=== PATIENT | female | born 1960 | race African-American/Black ===

== ENCOUNTER 2017-09-03 23:16 | Emergency (ER) | payer MEDICARE, MEDICAID ==
[2017-09-03] MEDS ORDERED: Milk Of Magnesia 30 ML UDCUP ONE (23:41)
[2017-09-03] MEDS ORDERED: Lidocaine Viscous Sol 2% 15 ml UD Cup ONE (23:41)
[2017-09-04] LABS: Hematocrit 40.3 % (36.0-47.0); Mean Platelet Volume 7.7 fL (7.4-10.4); Red Blood Cell (RBC) Count 4.45 mill/uL (4.20-5.40); White Blood Cell (WBC) Count 8.1 thou/uL (4.8-10.8)
[2017-09-04 00:13] LABS: Bilirubin Negative (Negative); Blood, Urine Negative (Negative); Glucose, Urine (Dipstick) Negative (Negative); Ketone, Urine Negative (Negative); Nitrite Negative (Negative); Protein, Urine (Dipstick) Negative (Neg-Trace); Urobilinogen 0.2 mg/dL (0.2-1.0)
[2017-09-04 00:13] LABS: ALT (SGPT) 18 U/L (8-55); AST (SGOT) 15 U/L (5-34); Alkaline Phosphatase 72 U/L (40-150); Anion Gap 14 mmol/L (10-20); BUN (Urea Nitrogen) 15 mg/dL (9.8-20.1); Bilirubin, Total 0.2 mg/dL (0.2-1.2); Calc. Creatinine Clearance 0 mL/min (70-130); Calcium 10.2 mg/dL (7.8-10.44); Carbon Dioxide 28 mmol/L (22-29); Chloride 101 mmol/L (98-107); Estimated GFR-MDRD 84; Globulin 3.4 g/dL (2.4-3.5); Lipase 30 U/L (8-78); Protein, Total 7.8 g/dL (6.0-8.3)
[2017-09-04 00:20] LABS: Band 1 % (5-11); Neutrophil 30 % (42-75); Reactive Lymphocytes 2 % (0-10)
== END 2017-09-04 00:53 | disposition home or self-care (01) ==
LOC: ERS 23:16
DX: R10.11 Right upper quadrant pain (principal); I10 Essential (primary) hypertension; E78.5 Hyperlipidemia, unspecified; F41.9 Anxiety disorder, unspecified; F17.210 Nicotine dependence, cigarettes, uncomplicated; Z79.899 Other long term (current) drug therapy
CPT/HCPCS: 80053; 81003; 83690; 85025; 93005

== ENCOUNTER 2017-09-07 10:54 | Emergency (ER) | payer MEDICARE, MEDICAID ==
[2017-09-07] MEDS ORDERED: Ketorolac Tromethamine 30 MG/ML VIAL ONE (13:35)
--- NOTE | 2017-09-07 13:56 | RAD ---
FIVE VIEWS OF THE LEFT KNEE: INDICATION: Left knee pain. COMPARISON: Prior exam dated 08/03/16. FINDINGS: There is severe left knee osteoarthrosis that appears similar. There is mild to moderate joint capsu lar distention which is again seen. No acute fracture or subluxation is evident. IMPRESSION: 1. Stable moderate to severe osteoarthrosis involving the left knee predominantly affecting patellof emoral and lateral femorotibial joint compartment. 2. Mild to moderate joint osteoarthrosis. POS: [facility]
== END 2017-09-07 14:15 | disposition home or self-care (01) ==
LOC: ERS 10:54
DX: M25.562 Pain in left knee (principal); E78.5 Hyperlipidemia, unspecified; I10 Essential (primary) hypertension; F41.9 Anxiety disorder, unspecified; F17.210 Nicotine dependence, cigarettes, uncomplicated; X50.1XXA Overexertion from prolonged static or awkward postures, initial encounter; Y93.01 Activity, walking, marching and hiking
CPT/HCPCS: 96372; 99406; J1885

== ENCOUNTER 2017-09-29 08:00 | Emergency (ER) | payer MEDICARE, MEDICAID | END 2017-09-29 08:54 | disposition home or self-care (01) | LOC: ERS 08:00 | DX: B34.9 Viral infection, unspecified (principal); F41.9 Anxiety disorder, unspecified; F17.210 Nicotine dependence, cigarettes, uncomplicated; Z79.899 Other long term (current) drug therapy | CPT/HCPCS: 87804; 99283 ==

== ENCOUNTER 2017-10-21 15:48 | Outpatient (CLI) | payer MEDICARE, MEDICAID ==
[~2017-10-21 15:48] MED LIST: Gadobenate Dimeglumine 529 MG/1 ML (20ML VIAL) ONE
--- NOTE | 2017-10-21 19:02 | MRI ---
CERVICAL SPINE MRI WITH AND WITHOUT CONTRAST: Indication: Pain with numbness and tingling, paresthesia of upper limb. FINDINGS: Vertebral body heights and disc space heights are preserved. No acute marrow edema. There is degenera tive hypertrophy at the atlantodental articularis. C2-3: There is a right subarticular disc protrusion at the C2-3 level which does produce mass effect upon the right aspect of the cervical spinal cord. There is associated increased intramedullary T2 si gnal which may be on the basis of compressive myelomalacia and/or cord edema. There is no high grade foraminal stenosis. C3-4: There is an inferior disc extrusion centered at the left paracentral zone. This does result in moderate cord compression, more notable to the left, with moderate central canal stenosis. Mild narro wing of each neural foramen present. C4-5: There is a right paracentral/central zone disc protrusion with moderate cord compromise and nirmala tral canal stenosis. There is moderate right and mild left neural foraminal stenosis. C5-6: Right paracentral disc protrusion abuts but does not significantly deform the ventral aspect of the cervical spinal cord to the right of midline. There is mild bilateral neural foraminal narrowing . C6-7: There is a broad based disc bulge with mild narrowing of the central canal. No high grade janie inal stenosis. C7-T1: No significant central canal or foraminal stenosis. There is no pathologic intramedullary enhancement identified. IMPRESSION: Multilevel degenerative change of the cervical spine resulting in multilevel areas of cord compromise , most pronounced at C3-4 with associated cord signal abnormality. POS: [facility]
== END 2017-10-21 15:49 | disposition home or self-care (01) ==
LOC: MRI 15:48
PROVIDERS: ATTEND Family Medicine
DX: M54.2 Cervicalgia (principal); R20.2 Paresthesia of skin; M47.892 Other spondylosis, cervical region
CPT/HCPCS: 72156; A9579

== ENCOUNTER 2017-10-22 08:20 | Emergency (ER) | payer MEDICARE, MEDICAID ==
--- NOTE | 2017-10-22 09:07 | RAD ---
FRONTAL VIEW CHEST: Comparison: 04-19-17 Indication: Chest pain, neck pain. FINDINGS: There is no consolidation, effusion, or pneumothorax. Cardiac silhouette is accentuated with portable technique. There is mild osseous degenerative change. Otherwise, no acute process. IMPRESSION: No focal abnormality. POS: [facility]
[2017-10-22] MEDS ORDERED: Ondansetron HCl/PF 4 MG/2 ML Vial ONE (09:19)
[2017-10-22 09:20] LABS: Hemoglobin 13.5 g/dL (12.0-16.0); Mean Corpuscular Hemoglobin 29.7 pg (27.0-31.0); Mean Platelet Volume 8.7 fL (7.4-10.4); Platelet Count 292 thou/uL (130-400); RBC Distribution Width 12.6 % (11.5-14.5); Red Blood Cell (RBC) Count 4.56 mill/uL (4.20-5.40); White Blood Cell (WBC) Count 5.8 thou/uL (4.8-10.8)
[2017-10-22 09:40] LABS: Band 2 % (5-11); Eosinophils 1 % (0-10); Lymphocytes 51 % (21-51); MDiff Complete? YES; Monocytes 4 % (0-10); Neutrophil 36 % (42-75); RBC Morphology Normal; Reactive Lymphocytes 6 % (0-10)
[2017-10-22 09:47] LABS: ALT (SGPT) 21 U/L (8-55); AST (SGOT) 17 U/L (5-34); Albumin 4.6 g/dL (3.5-5.0); Alkaline Phosphatase 71 U/L (40-150); Anion Gap 14 mmol/L (10-20); BUN (Urea Nitrogen) 12 mg/dL (9.8-20.1); Bilirubin, Total 0.3 mg/dL (0.2-1.2); CK (CPK) 110 U/L (29-168); CKMB 1.1 ng/mL (0-6.6); Calc. Creatinine Clearance 0 mL/min (70-130); Calcium 10.6 mg/dL (7.8-10.44); Carbon Dioxide 28 mmol/L (22-29); Chloride 101 mmol/L (98-107); Estimated GFR-MDRD Greater than 90; Globulin 3.3 g/dL (2.4-3.5); Glucose 135 mg/dL (70-105); Lipase 33 U/L (8-78); Potassium 3.9 mmol/L (3.5-5.1); Protein, Total 7.9 g/dL (6.0-8.3); Sodium 139 mmol/L (136-145); Troponin I Less than 0.010 ng/mL (< 0.028)
[2017-10-22 10:30] LABS: Bilirubin Negative (Negative); Blood, Urine Negative (Negative); Clarity CLEAR (Clear); Glucose, Urine (Dipstick) Negative (Negative); Leukocyte Negative (Negative); Nitrite Negative (Negative); Protein, Urine (Dipstick) Negative (Neg-Trace); Specific Gravity, Urine 1.006 (1.002-1.036); Urobilinogen 0.2 mg/dL (0.2-1.0)
--- NOTE | 2017-10-26 12:23 | EKG ---
Test Reason : Blood Pressure : / mmHG Vent. Rate : 080 BPM Atrial Rate : 080 BPM P-R Int : 162 ms QRS Dur : 088 ms QT Int : 392 ms P-R-T Axes : 027 007 014 degrees QTc Int : 452 ms Normal sinus rhythm Minimal voltage criteria for LVH, may be normal variant Borderline ECG Confirmed by JUS Burnham, PERLA ([id number]), commissioning editor NANCI ENRIQUE ([id number]) on 10/26/2017 12:23:07 PM Referred By: Confirmed By:PERLA LUU M.D.
== END 2017-10-22 11:57 | disposition home or self-care (01) ==
LOC: ERS 08:20
DX: M50.31 Other cervical disc degeneration, high cervical region (principal); R07.89 Other chest pain; I10 Essential (primary) hypertension; F41.9 Anxiety disorder, unspecified; F17.210 Nicotine dependence, cigarettes, uncomplicated; Z79.899 Other long term (current) drug therapy
CPT/HCPCS: 71045; 80053; 81003; 82550; 82553; 83690; 84484; 85025; 93005; 94760; 96374; 96375; J2270; J2405

== ENCOUNTER 2017-12-03 10:06 | Emergency (ER) | payer MEDICARE, MEDICAID ==
[2017-12-03 12:38] LABS: #Basophils 0.1 thou/uL (0.0-0.2); #Eosinphils 0.1 thou/uL (0.0-0.7); #Lymphocytes 2.2 thou/uL (1.20-3.40); #Monocytes 0.5 thou/uL (0.11-0.59); #Neutrophils 2.8 thou/uL (1.40-6.50); %Basophils 1.7 % (0.0-1.0); %Eosinophils 0.9 % (0.0-10.0); %Lymphocytes 38.2 % (21.0-51.0); %Monocytes 9.5 % (0.0-10.0); %Neutrophils 49.7 % (42.0-75.0); Hemoglobin 11.9 g/dL (12.0-16.0); Mean Corpuscular HGB CONC 33.7 g/dL (32.0-36.0); Mean Corpuscular Hemoglobin 28.9 pg (27.0-31.0); Mean Corpuscular Volume 85.7 fl (81.0-99.0); Mean Platelet Volume 7.3 fL (7.4-10.4); Platelet Count 378 thou/uL (130-400); RBC Distribution Width 12.3 % (11.5-14.5); Red Blood Cell (RBC) Count 4.13 mill/uL (4.20-5.40); White Blood Cell (WBC) Count 5.6 thou/uL (4.8-10.8)
[2017-12-03] MEDS ORDERED: Famotidine/PF 20 mg/2ml Vial ONE (12:44)
[2017-12-03] MEDS ORDERED: diphenhydrAMINE 50 MG/ML VIAL ONE (12:44)
[2017-12-03] MEDS ORDERED: methylPREDNISolone Sod Succ/PF 125 MG/2 ML VIAL ONE (12:44)
[2017-12-03] MEDS ORDERED: Water For Inject, Bacteriostat 30 ML ONE (12:45)
[2017-12-03] MEDS ORDERED: HYDROcodone/Acetaminophen 10/325 mg Tablet ONE (13:09)
[2017-12-03 13:19] LABS: Anion Gap 14 mmol/L (10-20); BUN (Urea Nitrogen) 9 mg/dL (9.8-20.1); CRP (Inflammatory) 4.46 mg/dL (= or < 0.5); Calc. Creatinine Clearance 0 mL/min (70-130); Calcium 10.2 mg/dL (7.8-10.44); Carbon Dioxide 33 mmol/L (22-29); Chloride 87 mmol/L (98-107); Estimated GFR-MDRD 90; Glucose 122 mg/dL (70-105); Sodium 131 mmol/L (136-145)
[2017-12-03 13:29] LABS: Potassium 2.8 mmol/L (3.5-5.1)
--- NOTE | 2017-12-03 14:39 | CT ---
CT NECK WITH IV CONTRAST: History: Neck pain. Recent cervical spine surgery. FINDINGS: Surgical absence of the posterior elements is apparent at the C3-4 levels. Prominent posterior osteop hyte/disc complex at this level remains. At the post-operative bed, a large irregular shaped collecti on of fluid contains small gas pockets and effaces the posterior aspect of the thecal sac. The post-o perative fluid and gas collection measures up to 6.7 cm length x 3.9 cm depth x 2.3 cm width. No thic k enhancing rim is evident. Degenerative changes are as detailed on recent MRI. No metallic foreign bodies are apparent. Airway i s patent. No significant adenopathy. There is calcification of the carotid bifurcations. IMPRESSION: 1. Large fluid collection with small pockets of gas at the post-operative bed posterior to the C3-4 l aminectomy. No overt abscess is evident. Correlation with clinical findings is required. 2. Degenerative changes of the cervical spine are otherwise stable. 3. Atherosclerosis. POS: [facility]
[2017-12-03] MEDS ORDERED: Potassium Chloride 20 MEQ TAB ONE (14:50)
[2017-12-03] MEDS ORDERED: Acetaminophen 325 MG TAB ONE (15:31)
[2017-12-03] MEDS ORDERED: Iopamidol 370 76% 100 ML VIAL ONE (16:20)
== END 2017-12-03 15:44 | disposition home or self-care (01) ==
LOC: ERS 10:06
DX: M96.89 Other intraoperative and postprocedural complications and disorders of the musculoskeletal system (principal); M54.2 Cervicalgia; I10 Essential (primary) hypertension; F41.9 Anxiety disorder, unspecified; F17.210 Nicotine dependence, cigarettes, uncomplicated; Z79.891 Long term (current) use of opiate analgesic; Z79.899 Other long term (current) drug therapy
CPT/HCPCS: 70491; 80048; 85025; 85652; 86140; 96374; 96375; J1200; J2930; S0028

== ENCOUNTER 2017-12-18 11:15 | Emergency (ER) | payer MEDICARE, MEDICAID ==
[2017-12-18 12:23] LABS: #Basophils 0.1 thou/uL (0.0-0.2); #Lymphocytes 1.8 thou/uL (1.20-3.40); #Monocytes 0.4 thou/uL (0.11-0.59); %Basophils 1.9 % (0.0-1.0); %Monocytes 8.2 % (0.0-10.0); %Neutrophils 46.8 % (42.0-75.0); Hemoglobin 13.2 g/dL (12.0-16.0); Mean Corpuscular HGB CONC 32.1 g/dL (32.0-36.0); Mean Corpuscular Hemoglobin 28.5 pg (27.0-31.0); Mean Platelet Volume 7.6 fL (7.4-10.4); Platelet Count 340 thou/uL (130-400); RBC Distribution Width 12.6 % (11.5-14.5); Red Blood Cell (RBC) Count 4.62 mill/uL (4.20-5.40); White Blood Cell (WBC) Count 4.3 thou/uL (4.8-10.8)
[2017-12-18 12:33] LABS: ALT (SGPT) 24 U/L (8-55); AST (SGOT) 16 U/L (5-34); Albumin 4.8 g/dL (3.5-5.0); Alkaline Phosphatase 68 U/L (40-150); Anion Gap 16 mmol/L (10-20); BUN (Urea Nitrogen) 6 mg/dL (9.8-20.1); Bilirubin, Total 0.4 mg/dL (0.2-1.2); Calc. Creatinine Clearance 0 mL/min (70-130); Calcium 10.6 mg/dL (7.8-10.44); Carbon Dioxide 29 mmol/L (22-29); Chloride 96 mmol/L (98-107); Estimated GFR-MDRD 90; Globulin 3.3 g/dL (2.4-3.5); Glucose 117 mg/dL (70-105); Potassium 3.1 mmol/L (3.5-5.1); Protein, Total 8.1 g/dL (6.0-8.3); Sodium 138 mmol/L (136-145)
--- NOTE | 2017-12-18 12:50 | ULT ---
VENOUS DOPPLER ULTRASOUND OF THE RIGHT LOWER EXTREMITY: HISTORY: Right lower extremity pain. TECHNIQUE: Mcelroy scale ultrasound with color flow and spectral Doppler imaging of the deep venous system of the r ight lower extremity is performed. FINDINGS: There is good flow, compression, and augmentation noted in the right common femoral, femoral, deep fe moral, popliteal, posterior tibial, and greater saphenous veins. IMPRESSION: No evidence of deep vein thrombosis in the right lower extremity. POS: [facility]
== END 2017-12-18 16:58 | disposition home or self-care (01) ==
LOC: ERS 11:15
DX: M79.89 Other specified soft tissue disorders (principal); F41.9 Anxiety disorder, unspecified; F17.210 Nicotine dependence, cigarettes, uncomplicated; I10 Essential (primary) hypertension; Z79.899 Other long term (current) drug therapy
CPT/HCPCS: 36415; 80053; 85025

== ENCOUNTER 2017-12-29 14:51 | Emergency (ER) | payer MEDICARE, MEDICAID ==
[2017-12-29] MEDS ORDERED: Ketorolac Tromethamine 30 MG/ML VIAL ONE (16:17)
[2017-12-29] MEDS ORDERED: HYDROcodone/Acetaminophen 10/325 mg Tablet ONE (16:17)
[2017-12-29] MEDS ORDERED: Ondansetron ODT 4 MG TAB ONE (16:37)
[2017-12-29 16:49] LABS: Hemoglobin 12.8 g/dL (12.0-16.0); Mean Corpuscular HGB CONC 32.3 g/dL (32.0-36.0); Mean Corpuscular Hemoglobin 28.9 pg (27.0-31.0); Mean Corpuscular Volume 89.5 fl (81.0-99.0); Mean Platelet Volume 7.7 fL (7.4-10.4); Platelet Count 337 thou/uL (130-400); RBC Distribution Width 12.7 % (11.5-14.5); Red Blood Cell (RBC) Count 4.44 mill/uL (4.20-5.40); White Blood Cell (WBC) Count 5.7 thou/uL (4.8-10.8)
[2017-12-29 17:03] LABS: Band 2 % (5-11); Lymphocytes 42 % (21-51); MDiff Complete? YES; Monocytes 8 % (0-10); Neutrophil 38 % (42-75); PLT Morphology Comment Appears Adequate; RBC Morphology Normal; Reactive Lymphocytes 9 % (0-10)
[2017-12-29 17:13] LABS: ALT (SGPT) 27 U/L (8-55); AST (SGOT) 16 U/L (5-34); Albumin 4.9 g/dL (3.5-5.0); Alkaline Phosphatase 65 U/L (40-150); Anion Gap 12 mmol/L (10-20); BUN (Urea Nitrogen) 7 mg/dL (9.8-20.1); Bilirubin, Total 0.4 mg/dL (0.2-1.2); CK (CPK) 80 U/L (29-168); Calc. Creatinine Clearance 0 mL/min (70-130); Calcium 10.9 mg/dL (7.8-10.44); Carbon Dioxide 32 mmol/L (22-29); Chloride 100 mmol/L (98-107); Estimated GFR-MDRD Greater than 90; Glucose 98 mg/dL (70-105); Potassium 3.7 mmol/L (3.5-5.1); Protein, Total 7.9 g/dL (6.0-8.3); Sodium 140 mmol/L (136-145)
== END 2017-12-29 20:05 | disposition home or self-care (01) ==
LOC: ERS 14:51
DX: F41.9 Anxiety disorder, unspecified; F17.210 Nicotine dependence, cigarettes, uncomplicated; J30.9 Allergic rhinitis, unspecified; I10 Essential (primary) hypertension
CPT/HCPCS: 36415; 80053; 82550; 85025; 85652; 86140; 87804; 96372; 99406; J1885; Q0162

== ENCOUNTER 2018-08-04 08:33 | Outpatient (CLI) | payer MEDICARE, MEDICAID ==
--- NOTE | 2018-08-04 10:29 | ULT ---
LIMITED RIGHT BREAST ULTRASOUND: Date: 08-04-18 Provided Clinical History: Right breast palpable abnormality. FINDINGS: Limited sonographic interrogation is performed of the right breast in the region of reported palpable findings. Interrogation was performed from the 9 to 11 o'clock positions. Sonographic appearance of the breast parenchyma in these regions is normal. IMPRESSION: BIRADS category 1 - negative. Negative imaging findings should not preclude further evaluation of a c linically suspicious area. The patient is referred by to her physician. POS: [facility]
== END 2018-08-04 08:34 | disposition home or self-care (01) ==
LOC: BICMAMMO 08:33
PROVIDERS: ATTEND Student in an Organized Health Care Education/Training Program
DX: N63.10 Unspecified lump in the right breast, unspecified quadrant (principal)
CPT/HCPCS: 76642; 77066; G0279

== ENCOUNTER 2018-09-07 10:02 | Emergency (ER) | payer MEDICARE, MEDICAID ==
[2018-09-07 10:55] LABS: #Basophils 0.2 thou/uL (0.0-0.2); #Eosinphils 0.1 thou/uL (0.0-0.7); #Lymphocytes 2.6 thou/uL (1.20-3.40); #Monocytes 0.5 thou/uL (0.11-0.59); #Neutrophils 2.5 thou/uL (1.40-6.50); %Basophils 2.9 % (0.0-1.0); %Eosinophils 1.4 % (0.0-10.0); %Lymphocytes 44.6 % (21.0-51.0); %Monocytes 7.8 % (0.0-10.0); %Neutrophils 43.4 % (42.0-75.0); Hemoglobin 13.6 g/dL (12.0-16.0); Mean Corpuscular HGB CONC 33.6 g/dL (32.0-36.0); Mean Corpuscular Volume 86.5 fL (78.0-98.0); Mean Platelet Volume 9.3 fL (7.4-10.4); Platelet Count 292 thou/uL (130-400); RBC Distribution Width 12.4 % (11.5-14.5); White Blood Cell (WBC) Count 5.8 thou/uL (4.8-10.8)
[2018-09-07 11:06] LABS: ALT (SGPT) 25 U/L (8-55); AST (SGOT) 17 U/L (5-34); Albumin 4.6 g/dL (3.5-5.0); Alkaline Phosphatase 104 U/L (40-150); Anion Gap 15 mmol/L (10-20); BUN (Urea Nitrogen) 9 mg/dL (9.8-20.1); Bilirubin, Total 0.4 mg/dL (0.2-1.2); Calc. Creatinine Clearance 0 mL/min (70-130); Calcium 10.6 mg/dL (7.8-10.44); Carbon Dioxide 28 mmol/L (22-29); Chloride 97 mmol/L (98-107); Estimated GFR-MDRD 72; Globulin 3.3 g/dL (2.4-3.5); Glucose 419 mg/dL (70-105); Potassium 3.3 mmol/L (3.5-5.1); Protein, Total 7.9 g/dL (6.0-8.3); Sodium 137 mmol/L (136-145)
== END 2018-09-07 12:12 | disposition home or self-care (01) ==
LOC: ERS 10:02
DX: R73.9 Hyperglycemia, unspecified (principal); F41.9 Anxiety disorder, unspecified; F32.9 Major depressive disorder, single episode, unspecified; I10 Essential (primary) hypertension; F17.210 Nicotine dependence, cigarettes, uncomplicated; Z79.899 Other long term (current) drug therapy
CPT/HCPCS: 80053; 85025; 96360

== ENCOUNTER 2018-09-09 17:19 | Emergency (ER) | payer MEDICARE, MEDICAID ==
[2018-09-09 17:45] LABS: #Basophils 0.1 thou/uL (0.0-0.2); #Eosinphils 0.1 thou/uL (0.0-0.7); #Lymphocytes 3.7 thou/uL (1.20-3.40); #Monocytes 0.5 thou/uL (0.11-0.59); #Neutrophils 3.9 thou/uL (1.40-6.50); %Basophils 1.8 % (0.0-1.0); %Eosinophils 0.9 % (0.0-10.0); %Lymphocytes 44.4 % (21.0-51.0); %Monocytes 5.8 % (0.0-10.0); Hemoglobin 13.2 g/dL (12.0-16.0); Mean Corpuscular HGB CONC 33.5 g/dL (32.0-36.0); Mean Corpuscular Hemoglobin 29.1 pg (27.0-31.0); Mean Corpuscular Volume 86.9 fL (78.0-98.0); Mean Platelet Volume 9.5 fL (7.4-10.4); Platelet Count 285 thou/uL (130-400); RBC Distribution Width 12.5 % (11.5-14.5); Red Blood Cell (RBC) Count 4.53 mill/uL (4.20-5.40); White Blood Cell (WBC) Count 8.2 thou/uL (4.8-10.8)
[2018-09-09 18:10] LABS: Bilirubin Negative (Negative); Blood, Urine Negative (Negative); Clarity CLEAR (Clear); Glucose, Urine (Dipstick) >=1000 mg/dL (Negative); Leukocyte Trace (Negative); Nitrite Negative (Negative); Protein, Urine (Dipstick) Negative (Neg-Trace); Specific Gravity, Urine 1.015 (1.002-1.036); Urobilinogen 0.2 mg/dL (0.2-1.0); pH, Urine 6.5 (5.0-9.0)
[2018-09-09 18:15] LABS: ALT (SGPT) 26 U/L (8-55); AST (SGOT) 19 U/L (5-34); Albumin 4.6 g/dL (3.5-5.0); Alkaline Phosphatase 114 U/L (40-150); Anion Gap 12 mmol/L (10-20); BUN (Urea Nitrogen) 11 mg/dL (9.8-20.1); Bilirubin, Total 0.4 mg/dL (0.2-1.2); Calc. Creatinine Clearance 0 mL/min (70-130); Calcium 10.3 mg/dL (7.8-10.44); Carbon Dioxide 29 mmol/L (22-29); Chloride 95 mmol/L (98-107); Estimated GFR-MDRD 60; Globulin 3.1 g/dL (2.4-3.5); Glucose 524 mg/dL (70-105); Lipase 40 U/L (8-78); Potassium 3.3 mmol/L (3.5-5.1); Protein, Total 7.7 g/dL (6.0-8.3); Sodium 133 mmol/L (136-145)
--- NOTE | 2018-09-09 18:20 | RAD ---
PORTABLE CHEST 09/09/18 PROVIDED CLINICAL HISTORY: Cough. FINDINGS: Comparison 08/12/18. The cardiac and mediastinal silhouette is within normal limits. Lungs appear clear. No pleural fluid or pneumothorax apparent. IMPRESSION: No evidence for an acute cardiopulmonary process. POS: [facility]
[2018-09-09 18:34] LABS: Pathc Cast-AUWi Flag 0.29 (0-2.49)
[2018-09-09 18:57] LABS: Bacteria/HPF None Seen HPF (None Seen); Hyaline Casts/LPF NONE SEEN LPF (0-3 Hyaline); RBC/HPF 0-3 HPF (0-3); Squamous Epithelial 0-3 HPF (0-3); WBC/HPF 0-3 HPF (0-3)
[2018-09-09] MEDS ORDERED: Insulin Regular 300 UNITS/3 ML VIAL ONE (20:17)
--- NOTE | 2018-09-10 12:55 | EKG ---
Test Reason : Blood Pressure : / mmHG Vent. Rate : 088 BPM Atrial Rate : 088 BPM P-R Int : 160 ms QRS Dur : 088 ms QT Int : 398 ms P-R-T Axes : 035 014 004 degrees QTc Int : 481 ms Normal sinus rhythm Nonspecific T wave abnormality Prolonged QT Abnormal ECG Confirmed by JESUS PAGAN ([id number]), online content editor HOA FELIX ([id number]) on 09/10/2018 12:55:26 PM Referred By: Confirmed By:JESUS PAGAN
== END 2018-09-09 21:42 | disposition home or self-care (01) ==
LOC: ERS 17:19
DX: E11.65 Type 2 diabetes mellitus with hyperglycemia (principal); F41.9 Anxiety disorder, unspecified; F32.9 Major depressive disorder, single episode, unspecified; I10 Essential (primary) hypertension; F17.210 Nicotine dependence, cigarettes, uncomplicated; Z79.84 Long term (current) use of oral hypoglycemic drugs; Z79.899 Other long term (current) drug therapy
CPT/HCPCS: 36416; 71045; 80053; 81003; 81015; 83690; 84484; 85025; 87086; 93005; 96360; 96361; J1815

== ENCOUNTER 2018-10-23 21:04 | Emergency (ER) | payer MEDICARE, MEDICAID ==
[2018-10-23] MEDS ORDERED: Polyethylene Glycol 3350 17 GM Packet PO SCH (22:45)
[2018-10-23] MEDS ORDERED: Fleet Enema 133 ML BOT FS SCH (22:45)
[2018-10-23 22:50] LABS: Mean Corpuscular HGB CONC 32.7 g/dL (32.0-36.0); Mean Corpuscular Hemoglobin 28.8 pg (27.0-31.0); Mean Corpuscular Volume 88.2 fL (78.0-98.0); Mean Platelet Volume 9.1 fL (7.4-10.4); Platelet Count 272 thou/uL (130-400); RBC Distribution Width 12.3 % (11.5-14.5); White Blood Cell (WBC) Count 8.1 thou/uL (4.8-10.8)
[2018-10-23 23:09] LABS: ALT (SGPT) 15 U/L (8-55); AST (SGOT) 17 U/L (5-34); Albumin 4.8 g/dL (3.5-5.0); Alkaline Phosphatase 68 U/L (40-150); Anion Gap 15 mmol/L (10-20); BUN (Urea Nitrogen) 11 mg/dL (9.8-20.1); Bilirubin, Total 0.4 mg/dL (0.2-1.2); Calc. Creatinine Clearance 0 mL/min (70-130); Calcium 10.9 mg/dL (7.8-10.44); Carbon Dioxide 29 mmol/L (22-29); Chloride 100 mmol/L (98-107); Estimated GFR-MDRD Greater than 90; Globulin 3.1 g/dL (2.4-3.5); Glucose 88 mg/dL (70-105); Protein, Total 7.9 g/dL (6.0-8.3); Sodium 141 mmol/L (136-145)
[2018-10-23 23:13] LABS: Eosinophils 1 % (0-10); Lymphocytes 61 % (21-51); MDiff Complete? YES; Monocytes 5 % (0-10); Neutrophil 32 % (42-75); Platelet Morphology Comment Appears Adequate; RBC Morphology Normal; Reactive Lymphocytes 1 % (0-10)
[2018-10-23] MEDS ORDERED: Potassium Chloride 20 MEQ TAB ONE (23:39)
== END 2018-10-24 | disposition home or self-care (01) ==
LOC: ERS 21:04
DX: K59.00 Constipation, unspecified (principal); E87.6 Hypokalemia; F17.210 Nicotine dependence, cigarettes, uncomplicated; E11.9 Type 2 diabetes mellitus without complications; I10 Essential (primary) hypertension; Z79.84 Long term (current) use of oral hypoglycemic drugs; Z79.899 Other long term (current) drug therapy
CPT/HCPCS: 36415; 80053; 84484; 85025; 93005

== ENCOUNTER 2018-11-23 08:52 | Emergency (ER) | payer MEDICARE, MEDICAID ==
[2018-11-23 10:01] LABS: #Basophils 0.1 thou/uL (0.0-0.2); #Eosinphils 0.1 thou/uL (0.0-0.7); #Lymphocytes 2.8 thou/uL (1.20-3.40); #Monocytes 0.4 thou/uL (0.11-0.59); #Neutrophils 5.4 thou/uL (1.40-6.50); %Basophils 0.8 % (0.0-1.0); %Eosinophils 0.8 % (0.0-10.0); %Lymphocytes 32.1 % (21.0-51.0); %Neutrophils 61.3 % (42.0-75.0); Hemoglobin 12.9 g/dL (12.0-16.0); Mean Corpuscular HGB CONC 32.1 g/dL (32.0-36.0); Mean Corpuscular Hemoglobin 28.8 pg (27.0-31.0); Mean Corpuscular Volume 89.7 fL (78.0-98.0); Platelet Count 278 thou/uL (130-400); RBC Distribution Width 12.5 % (11.5-14.5); Red Blood Cell (RBC) Count 4.48 mill/uL (4.20-5.40); White Blood Cell (WBC) Count 8.7 thou/uL (4.8-10.8)
[2018-11-23] MEDS ORDERED: Colchicine 0.6 MG TAB ONE ×2 (10:30→11:49)
--- NOTE | 2018-11-23 10:43 | RAD ---
LEFT FOOT 4 VIEWS: Date: 11/23/18 HISTORY: Left foot pain and swelling. FINDINGS: Lisfranc joint alignment is anatomic. Pes planus on the lateral view. Prominent bunion deformity with mild hallux valgus. Small erosion involving the medial articular margin of the first metatarsal head . Mild subchondral sclerosis. Moderate osteophytosis throughout the hindfoot and midfoot, relatively sparing the forefoot. Small plantar and Achilles enthesophyte to the posterior aspect of the calcaneu s. Small well corticated ossification just above the anterior margin of the talus may represent an ol d, ununited ossific avulsion. No acute fracture or dislocation apparent. IMPRESSION: 1. Prominent bunion deformity with mild hallux valgus. 2. Arthritic changes most pronounced at the first metatarsophalangeal joint and throughout the midfo ot. 3. Small heel spurs. POS: [facility]
[2018-11-23] MEDS ORDERED: HYDROcodone/Acetaminophen 10/325 mg Tablet ONE (10:57)
== END 2018-11-23 12:00 | disposition home or self-care (01) ==
LOC: ERS 08:52
DX: M10.9 Gout, unspecified (principal); E11.9 Type 2 diabetes mellitus without complications; I10 Essential (primary) hypertension; F17.210 Nicotine dependence, cigarettes, uncomplicated
CPT/HCPCS: 36415; 84550; 85025; 99406

== ENCOUNTER 2019-10-31 16:27 | Emergency (ER) | payer MEDICARE, MEDICAID ==
[2019-10-31 17:49] LABS: Bilirubin Negative (Negative); Blood, Urine Negative (Negative); Clarity Clear (Clear); Glucose, Urine (Dipstick) Normal (Negative); Leukocyte Negative Leu/uL (Negative); Nitrite Negative (Negative); Protein, Urine (Dipstick) Negative (Neg-Trace); Urobilinogen Normal mg/dL (Less than 2)
[2019-10-31] MEDS ORDERED: Ondansetron PF 4 MG/2 ML Vial ONE (18:38)
[2019-10-31] MEDS ORDERED: Morphine 4 MG/ML VIAL ONE (18:38)
[2019-10-31 18:44] LABS: Mean Platelet Volume 8.6 fL (7.4-10.4); Platelet Count 301 thou/uL (130-400); RBC Distribution Width 13.1 % (11.5-14.5); Red Blood Cell (RBC) Count 4.14 mill/uL (4.20-5.40); White Blood Cell (WBC) Count 8.8 thou/uL (4.8-10.8)
[2019-10-31 19:03] LABS: ALT (SGPT) 11 U/L (8-55); AST (SGOT) 14 U/L (5-34); Albumin 4.8 g/dL (3.5-5.0); Alkaline Phosphatase 74 U/L (40-110); Anion Gap 13 mmol/L (10-20); BUN (Urea Nitrogen) 10 mg/dL (9.8-20.1); Bilirubin, Total 0.3 mg/dL (0.2-1.2); Calc. Creatinine Clearance 0 mL/min (70-130); Calcium 10.4 mg/dL (7.8-10.44); Carbon Dioxide 30 mmol/L (22-29); Chloride 101 mmol/L (98-107); Estimated GFR-MDRD Greater than 90; Globulin 2.6 g/dL (2.4-3.5); Glucose 74 mg/dL (70-105); Lipase 84 U/L (8-78); Potassium 3.5 mmol/L (3.5-5.1); Protein, Total 7.4 g/dL (6.0-8.3); Sodium 140 mmol/L (136-145)
[2019-10-31 19:16] LABS: Band 2 % (5-11); Lymphocytes 57 % (21-51); MDiff Complete? YES; Monocytes 8 % (0-10); Neutrophil 32 % (42-75); Platelet Morphology Comment Appears Adequate; RBC Morphology Normal; Reactive Lymphocytes 1 % (0-10)
[2019-10-31] MEDS ORDERED: Pantoprazole 40 MG VIAL ONE (20:22)
== END 2019-10-31 21:04 | disposition home or self-care (01) ==
LOC: ERS 16:27
DX: R10.13 Epigastric pain (principal); R11.0 Nausea; E11.9 Type 2 diabetes mellitus without complications; I10 Essential (primary) hypertension; F32.9 Major depressive disorder, single episode, unspecified; F17.210 Nicotine dependence, cigarettes, uncomplicated; F41.9 Anxiety disorder, unspecified; Z79.899 Other long term (current) drug therapy
CPT/HCPCS: 36415; 80053; 81003; 83690; 84484; 85025; 93005; 96372; 96374; 96375; C9113; J0500; J2270; J2405

== ENCOUNTER 2021-12-27 09:22 | Outpatient (CLI) | payer MEDICARE, MEDICAID | END 2021-12-27 09:23 | disposition home or self-care (01) | LOC: BICMAMMO 09:22 | PROVIDERS: ATTEND Family Medicine | DX: Z12.31 Encounter for screening mammogram for malignant neoplasm of breast (principal); N64.89 Other specified disorders of breast | CPT/HCPCS: 77063; 77067 ==

== ENCOUNTER 2021-12-29 13:09 | Outpatient (CLI) | payer OTHER, MEDICAID, MEDICARE | END 2021-12-29 13:10 | disposition home or self-care (01) | LOC: BICMAMMO 13:09 | PROVIDERS: ATTEND Family Medicine | DX: R92.2 Inconclusive mammogram (principal) | CPT/HCPCS: 76642; 77065; G0279 ==

== ENCOUNTER 2023-01-18 08:55 | Outpatient (CLI) | payer OTHER, MEDICAID | END 2023-01-18 08:56 | disposition home or self-care (01) | LOC: BICMAMMO 08:55 | PROVIDERS: ATTEND Family Medicine | DX: Z12.31 Encounter for screening mammogram for malignant neoplasm of breast (principal) | CPT/HCPCS: 77063; 77067 ==

== ENCOUNTER 2023-04-03 21:02 | Emergency (ER) | payer OTHER, MEDICAID ==
[2023-04-03] MEDS ORDERED: Dicyclomine 20 MG/2 ML VIAL ONE (21:49)
[2023-04-03] MEDS ORDERED: Lidocaine 2% Viscous Solution 10 ML, Aluminum & Magnesium Hydroxide 30 ML SSW SCH (22:00)
[2023-04-03 22:13] LABS: #Eosinphils 0.1 thou/uL (0.0-0.7); #Monocytes 0.7 thou/uL (0.11-0.59); #Neutrophils 2.1 thou/uL (1.40-6.50); %Basophils 0.1 % (0.0-1.0); %Lymphocytes 62.5 % (21.0-51.0); %Neutrophils 27.3 % (42.0-75.0); Hemoglobin 12.3 g/dL (12.0-16.0); Manual Diff?? YES; Mean Corpuscular HGB CONC 31.8 g/dL (32.0-36.0); Mean Corpuscular Hemoglobin 27.7 pg (27.0-31.0); Mean Corpuscular Volume 87.2 fl (78.0-98.0); Mean Platelet Volume 10.6 fL (7.4-10.4); Platelet Count 289 10x3/uL (130-400); RBC Distribution Width 14.2 % (11.5-14.5); Red Blood Cell (RBC) Count 4.44 mill/uL (4.20-5.40); White Blood Cell (WBC) Count 7.7 10x3/uL (4.8-10.8)
[2023-04-03 22:13] LABS: Bacteria/HPF None Seen HPF (None Seen); Bilirubin Negative (Negative); Blood, Urine Negative (Negative); CAUTI Indications for Culture Pelvic or flank pain; Clarity Clear (Clear); Glucose, Urine (Dipstick) Normal (Negative); Ketone, Urine Negative (Negative); Leukocyte Negative Leu/uL (Negative); Nitrite Negative (Negative); Protein, Urine (Dipstick) Negative (Neg-Trace); RBC/HPF 0-3 HPF (0-3); Specific Gravity, Urine 1.007 (1.002-1.036); Squamous Epithelial 0-3 HPF (0-3); Urobilinogen Normal mg/dL (Less than 2); WBC/HPF 0-3 HPF (0-3); pH, Urine 6.5 (5.0-9.0)
[2023-04-03 22:16] LABS: Urine Culture Reflex No No
[2023-04-03 22:23] LABS: ALT (SGPT) 28 U/L (8-55); AST (SGOT) 22 U/L (5-34); Albumin 4.7 g/dL (3.5-5.0); Alkaline Phosphatase 76 U/L (40-110); Anion Gap 16 mmol/L (10-20); BUN (Urea Nitrogen) 12 mg/dL (9.8-20.1); Bilirubin, Total 0.2 mg/dL (0.2-1.2); Calc. Creatinine Clearance 0 mL/min (70-130); Calcium 11.3 mg/dL (7.8-10.44); Carbon Dioxide 27 mmol/L (22-29); Chloride 98 mmol/L (98-107); Estimated GFR 88; Glucose 114 mg/dL (70-105); Lipase 36 U/L (8-78); Potassium 3.8 mmol/L (3.5-5.1); Protein, Total 7.7 g/dL (6.0-8.3); Sodium 137 mmol/L (136-145)
[2023-04-03 23:14] LABS: Band 1 % (5-11); Eosinophils 3 % (0-10); Hypochromia SLIGHT = 6-15 cells HPF (0-5); Lymphocytes 54 % (21-51); Monocytes 10 % (0-10); Neutrophil 31 % (42-75); Platelet Adequacy Comment Platelets Normal; Polychromasia SLIGHT = 2-3 cells HPF (0-2); Reactive Lymphocytes 1 % (0-10); Total Cell Count 100
== END 2023-04-04 00:21 | disposition home or self-care (01) ==
LOC: ERS 21:02
DX: K44.9 Diaphragmatic hernia without obstruction or gangrene (principal); E27.9 Disorder of adrenal gland, unspecified; I10 Essential (primary) hypertension; E11.9 Type 2 diabetes mellitus without complications; F17.210 Nicotine dependence, cigarettes, uncomplicated
CPT/HCPCS: 36415; 74176; 80053; 81001; 83690; 85025; 96372

== ENCOUNTER 2023-07-16 09:01 | Outpatient (CLI) | payer OTHER, MEDICAID | END 2023-07-16 09:02 | disposition home or self-care (01) | LOC: BICMRI 09:01 | PROVIDERS: ATTEND Student in an Organized Health Care Education/Training Program | DX: E27.8 Other specified disorders of adrenal gland (principal) | CPT/HCPCS: 74183; 82565 ==

== ENCOUNTER 2024-02-13 09:32 | Outpatient (CLI) | payer MEDICARE, MEDICAID | END 2024-02-13 09:33 | disposition home or self-care (01) | LOC: BICMAMMO 09:32 | PROVIDERS: ATTEND Family Medicine | DX: Z12.31 Encounter for screening mammogram for malignant neoplasm of breast (principal) | CPT/HCPCS: 77063; 77067 ==

== ENCOUNTER 2024-02-13 19:11 | Emergency (ER) | payer MEDICARE, OTHER ==
[2024-02-13] MEDS ORDERED: Ketorolac Tromethamine 30 MG (1 mL) VIAL ONE (19:48)
== END 2024-02-13 20:20 | disposition home or self-care (01) ==
LOC: ERS 19:11
DX: M54.2 Cervicalgia (principal); E11.9 Type 2 diabetes mellitus without complications; I10 Essential (primary) hypertension; F17.210 Nicotine dependence, cigarettes, uncomplicated
CPT/HCPCS: 96372; 99283; J1885

== ENCOUNTER 2024-07-07 08:56 | Outpatient (CLI) | payer MEDICARE, MEDICAID | END 2024-07-07 08:57 | disposition home or self-care (01) | LOC: BICMAMMO 08:56 | PROVIDERS: ATTEND Family Medicine | DX: E21.3 Hyperparathyroidism, unspecified (principal) | CPT/HCPCS: 77080 ==

== ENCOUNTER 2024-08-21 12:10 | Emergency (ER) | payer MEDICARE, MEDICAID ==
[2024-08-21] MEDS ORDERED: Acetaminophen 500 MG TAB ONE (14:11)
[2024-08-21] MEDS ORDERED: Ketorolac Tromethamine 30 MG (1 mL) VIAL ONE (15:35)
== END 2024-08-21 15:56 ==
LOC: ERS 12:10
DX: M71.21 Synovial cyst of popliteal space [Baker], right knee (principal); M13.871 Other specified arthritis, right ankle and foot; E11.9 Type 2 diabetes mellitus without complications; I10 Essential (primary) hypertension; F17.210 Nicotine dependence, cigarettes, uncomplicated; Z79.84 Long term (current) use of oral hypoglycemic drugs; Z79.899 Other long term (current) drug therapy
CPT/HCPCS: 73564; 73610; J1885; 96372; 99283